=== PATIENT | male | born 1945 | race African-American/Black ===

== ENCOUNTER 2018-05-23 09:28 | Emergency (ER) | payer OTHER, MEDICAID ==
[~2018-05-23] VITALS: Ht 177.8 cm; Wt 91.0 kg
[~2018-05-23 09:28] MED LIST: ASPI-1159 PO; BENA20TA3 PO; GLIP10TA10 PO; IBUP-2030 PO; METF850T2 PO; SIMV20TA6 PO
[2018-05-23 10:19] LABS: BASOPHILS % 0.7 % (0.0-2.0); EOSINOPHILS % 5.7 % (0.0-5.0); HEMATOCRIT. 40.7 % (42.0-52.0); HEMOGLOBIN. 13.9 g/dL (14.0-18.0); MEAN CORPUSCULAR HEMOGLOBIN 31.5 pg (28.0-32.0); MEAN CORPUSCULAR VOLUME 92.1 fL (80.0-94.0); MEAN PLATELET VOLUME 8.1 fl (7.4-10.4); MONOCYTES % 11.9 % (2.0-8.0); NEUTROPHILS % 50.7 % (40.0-76.0); PLATELET 210 x1000/uL (130-400); RED BLOOD CELL COUNT 4.41 mill/uL (4.7-6.1); RED CELL DISTRIBUTION WIDTH 13.9 % (11.6-14.6)
[2018-05-23 10:25] LABS: CHLORIDE 105 mEq/L (98-107)
[2018-05-23 16:43] LABS: PARTIAL THROMBOPLASTIN TIME 30.1 sec (23.4-31.0); PROTHROMBIN TIME 10.4 sec (9.4-11.6)
[2018-05-23 19:48] VITALS: BP 132/68
== END 2018-05-23 20:35 | disposition home or self-care (01) ==
LOC: ER 09:51 → CANRESERV 19:45 → ENRESERV 19:45 → ER 20:35 → CANBEDREQ 05-24 00:19
DX: I70.292 Other atherosclerosis of native arteries of extremities, left leg (principal); I10 Essential (primary) hypertension; E11.9 Type 2 diabetes mellitus without complications; J44.9 Chronic obstructive pulmonary disease, unspecified; F17.200 Nicotine dependence, unspecified, uncomplicated; E78.00 Pure hypercholesterolemia, unspecified; Z79.82 Long term (current) use of aspirin; Z88.0 Allergy status to penicillin
CPT/HCPCS: 36415; 80048; 83036; 85025; 85610; 85730; 93922; 93971; 99285

== ENCOUNTER 2022-01-07 11:28 | Emergency (ER) | payer OTHER, MEDICAID ==
[~2022-01-07] VITALS: Ht 180.3 cm; Wt 86.0 kg
[~2022-01-07 11:28] MED LIST changes: -ASPI-1159 PO; +ASPI-1497 PO; +BENA20TA10 PO; -BENA20TA3 PO; +METF-415 PO; -METF850T2 PO; +SIMV-43 PO; -SIMV20TA6 PO
[2022-01-07 12:26] LABS: BASOPHILS % 0.6 % (0.0-2.0); HEMATOCRIT. 47.3 % (42.0-52.0); LYMPHOCYTES % 22.2 % (20.0-50.0); MEAN CORPUSCULAR HEMOGLOBIN 30.9 pg (28.0-32.0); MEAN CORPUSCULAR VOLUME 91.4 fL (80.0-94.0); MEAN PLATELET VOLUME 8.2 fl (7.4-10.4); MONOCYTES % 9.9 % (2.0-8.0); NEUTROPHILS % 58.3 % (40.0-76.0); PLATELET 247 x1000/uL (130-400); RED BLOOD CELL COUNT 5.18 mill/uL (4.7-6.1); RED CELL DISTRIBUTION WIDTH 14.2 % (11.6-14.6)
[2022-01-07 12:32] LABS: CHLORIDE 106 mEq/L (98-107)
[2022-01-07] MEDS ORDERED: HYDR-4001 MT (16:33)
[2022-01-07] MEDS ORDERED: HYDROCODONE/ACETAMINOPHEN 5/325MG TABLET PO ONE (16:45)
[2022-01-07 16:56] VITALS: BP 151/88
[2022-01-11] MEDS ORDERED: TAMS-11 PO (06:34)
[2022-01-11] MEDS ORDERED: NAPR-681 PO (06:34)
[2022-01-11] MEDS ORDERED: TIZA4CAP PO (06:34)
== END 2022-01-07 17:02 | disposition home or self-care (01) ==
LOC: ER 11:46
DX: I70.211 Atherosclerosis of native arteries of extremities with intermittent claudication, right leg (principal); I77.1 Stricture of artery; E11.22 Type 2 diabetes mellitus with diabetic chronic kidney disease; E11.65 Type 2 diabetes mellitus with hyperglycemia; I12.9 Hypertensive chronic kidney disease with stage 1 through stage 4 chronic kidney disease, or unspecified chronic kidney disease; N18.9 Chronic kidney disease, unspecified; J44.9 Chronic obstructive pulmonary disease, unspecified; F17.210 Nicotine dependence, cigarettes, uncomplicated; Z88.0 Allergy status to penicillin
CPT/HCPCS: 36415; 80053; 83880; 84484; 85025; 93005; 93922; 93971; 99285

== ENCOUNTER → 2022-09-13 | Day surgery (SDC) | payer MEDICARE, MEDICAID ==
[~2022-09-13] MED LIST changes: +ACET-2708 PO; +ACETAMINOPHEN 325MG TABLET PO PRN; +AMLO5TAB4 PO; -ASPI-1497 PO; +ATROPINE SULFATE 1MG/10ML SYR IV PRN; +BENA-8 PO; -BENA20TA10 PO; +CLON1PAT10 TD; +FAMO20TA8 PO; +FENTANYL CITRATE/PF 50MCG/ML 2ML VIAL ONE; +GABA-533 PO; -GLIP10TA10 PO; +HYDR-4001 MT; +HYDR-4009 MT; -IBUP-2030 PO; +IODIXANOL 320MG/ML 100 ML BOTTLE IV ONE; +LIDOCAINE HCL 1% 20ML VIAL (Pyxis) INJ ONE; +METF-414 PO; -METF-415 PO; +MIDAZOLAM HCL 2 MG/2 ML VIAL ONE; +NALO4SPR NS; +NAPR-681 PO; +ONDANSETRON HCL 4MG/2ML INJ IV PRN; +TAMS-11 PO; +TIZA4CAP PO; +TIZA4CAP6 PO; +TOPUD MT; +TUBE5VIA ID
== END | disposition home or self-care (01) ==
LOC: CCL 05:42
PROVIDERS: ATTEND Specialist
DX: I73.9 Peripheral vascular disease, unspecified (principal); E78.5 Hyperlipidemia, unspecified; I25.10 Atherosclerotic heart disease of native coronary artery without angina pectoris; I13.0 Hypertensive heart and chronic kidney disease with heart failure and stage 1 through stage 4 chronic kidney disease, or unspecified chronic kidney disease; I50.9 Heart failure, unspecified; E11.22 Type 2 diabetes mellitus with diabetic chronic kidney disease; N18.9 Chronic kidney disease, unspecified; Z87.891 Personal history of nicotine dependence; Z79.84 Long term (current) use of oral hypoglycemic drugs; Z79.899 Other long term (current) drug therapy; Z98.890 Other specified postprocedural states; Z88.8 Allergy status to other drugs, medicaments and biological substances
CPT/HCPCS: 36246; 75710; 99152; C1760; C1769; C1893; J1644; J2250; J3010; J3490; Q9967; G0500